=== PATIENT | female | born 2000 | race Caucasian/White ===

== ENCOUNTER 2018-01-09 20:31 | Emergency (ER) | payer BC, OTHER ==
[~2018-01-09] VITALS: Ht 165.1 cm; Wt 52.0 kg
[~2018-01-09 20:31] MED LIST: AMOX400C20 CHEW; PHEN12.5 PR
[2018-01-09 20:49] VITALS: BP 135/98; PULSE 107; RESP 18; TEMP 98.1; O2SAT 98
--- NOTE | 2018-01-09 21:55 | PD ---
HPI Chief Complaint: Shakiness Time Seen by Provider: 21:44 Travel History International Travel<30 days: No Contact w/Intl Traveler<30days: No History of Present Illness HPI 17yo F with no significant PMH presents to the ED with episodes of shakiness, gasping for air and sob since 7pm this evening. Said she will feel fine and no sob in between these episodes. Pt have been having nonbloody diarrhea for a few days. Denies any history of anxiety, fever, chest pain, n/v, abdominal pain , focal weakness or numbness. Denies any alcohol or drug use. PFSH Past Medical History Diminished Hearing: No Past Surgical History Tonsillectomy: Yes Social History Alcohol Use: No Tobacco Use: No Substance Use: No Allergies-Medications (Allergen,Severity, Reaction): Coded Allergies: Sulfa (Sulfonamide Antibiotics) (Verified Allergy, Intermediate, Localized Rash, 01/09/18) Reported Meds & Prescriptions Reported Meds & Active Scripts Active Amoxil (Amoxicillin) 400 Mg Chw 400 Mg CHEW Q8 5 Days Phenergan (Promethazine HCl) 12.5 Mg Sup 6.25 Mg KS TIDPRN NAUSEA/VOMITING Review of Systems Except as stated in HPI: all other systems reviewed are Neg Physical Exam Narrative GENERAL: 17yo F in mild distress. SKIN: Focused skin assessment warm/dry. HEAD: Atraumatic. Normocephalic. EYES: Pupils equal and round. No scleral icterus. No injection or drainage. ENT: No nasal bleeding or discharge. Mucous membranes pink and moist. NECK: Trachea midline. No JVD. CARDIOVASCULAR: Tachycardic in the 120s. No murmur appreciated. RESPIRATORY: Hyperventilating. Clear to auscultation. Breath sounds equal bilaterally. GASTROINTESTINAL: Abdomen soft, non-tender, nondistended. MUSCULOSKELETAL: No obvious deformities. No clubbing. No cyanosis. No edema. NEUROLOGICAL: Awake and alert. No obvious cranial nerve deficits. Motor grossly within normal limits. Normal speech. +Resting tremors in upper extremities. PSYCHIATRIC: Anxious appearing. Data Data Last Documented VS Vital Signs Date Time Temp Pulse Resp B/P (MAP) Pulse Ox O2 Delivery O2 Flow Rate FiO2 01/09/18 22:57 84 18 111/65 (80) 99 01/09/18 21:57 Room Air 4/16/18 20:49 98.1 Orders Orders Ed Urine Pregnancytest Poc (01/09/18 21:45) Electrocardiogram (01/09/18 ) Basic Metabolic Panel (Bmp) (01/09/18 21:51) Thyroid Stimulating Hormone (01/09/18 21:51) Lorazepam Inj (Ativan Inj) (01/09/18 22:00) Sodium Chlor 0.9% 1000 Ml Inj (Ns 1000 M (01/09/18 22:00) Urinalysis - C+S If Indicated (01/09/18 22:15) Labs Laboratory Tests Test 01/09/18 22:00 01/09/18 22:05 Urine Color YELLOW Urine Turbidity CLEAR Urine pH 6.0 Urine Specific [place] LESS/EQUAL 1.005 Urine Protein NEG mg/dL Urine Glucose (UA) NEG mg/dL Urine Ketones NEG mg/dL Urine Occult Blood TRACE Urine Nitrite NEG Urine Bilirubin NEG Urine Urobilinogen 0.2 MG/DL Urine Leukocyte Esterase NEG Urine WBC 0-2 /hpf Urine Squamous Epithelial Cells 0-5 /hpf Microscopic Urinalysis Comment CULT NOT INDICATED Blood Urea Nitrogen 10 MG/DL Creatinine 0.83 MG/DL Random Glucose 90 MG/DL Calcium Level 9.0 MG/DL Sodium Level 138 MEQ/L Potassium Level 3.4 MEQ/L Chloride Level 105 MEQ/L Carbon Dioxide Level 24.5 MEQ/L Anion Gap 9 MEQ/L Estimat Glomerular Filtration Rate 89 ML/MIN Thyroid Stimulating Hormone 3rd Gen 1.190 uIU/ML [facility] Medical Decision Making Medical Screen Exam Complete: Yes Emergency Medical Condition: Yes Interpretation(s) EKG: NSR 93bpm. Normal axis. QRS normal. No ST segment elevation or depression. Differential Diagnosis Anxiety vs. hyperthyroidism vs. dehydration vs. anorexia Narrative Course 17yo F here with what sounds like episodes of panic attack. Pt has these episodes where she is gasping for air and feels like she cant breath and feels shaky. Pt does not have any sob between the episodes. negative. UA negative. Pt given ativan and NS IVF. Pt initially tachycardic but HR is now 84bpm. Pt reevaluated at bedside and feels much better. Denies any SOB and wants to go home. O2 sat 99% on RA. Labs reviewed, TSH normal. BUN/ creatinine normal. Return precautions given. Diagnosis Primary Impression: Panic attack Patient Instructions: General Instructions Departure Forms: Tests/Procedures Additional Instructions: Please follow up with your primary care physician. Return to the ED if symptoms worsen. Med/Other Pt SpecificInfo: No Change to Meds Disposition: 01 DISCHARGE HOME Condition: Stable Keri Multani DO Jan 09, 2018 21:55
[2018-01-09 21:59] VITALS: BP 133/78; PULSE 125; RESP 20; O2SAT 99
[2018-01-09] MEDS ORDERED: SODIUM CHLOR 0.9% 1000 ML INJ 1,000 ML IV ONE (22:00)
[2018-01-09] MEDS ORDERED: LORazepam 2 MG/ML VIAL IV PUSH ONE (22:00)
[2018-01-09 22:34] LABS: BICARBONATE 24.5 MEQ/L (21.0-32.0)
[2018-01-09 22:38] LABS: CREATININE 0.83 MG/DL (0.50-1.00)
[2018-01-09 22:53] LABS: BILIRUBIN, URINE NEG (NEG); BLOOD, URINE TRACE (NEG); GLUCOSE,URINE NEG (NEG); KETONE, URINE NEG (NEG); NITRITE,URINE NEG (NEG); URINE COLOR YELLOW (YELLW/STRAW); URINE LEUKOCYTE ESTERASE NEG (NEG)
[2018-01-09 22:57] VITALS: BP 111/65; PULSE 84; RESP 18; O2SAT 99
[2018-01-09 22:58] LABS: SQUAMOUS EPITHELIAL CELL URINE 0-5 /hpf (0-5); WBC, URINE 0-2 /hpf (0-5)
[2018-01-09 23:15] VITALS: BP 114/68
--- NOTE | 2018-01-10 15:25 | EKG ---
Date Performed: 01/09/2018 Time Performed: 22:01:09 PTAGE: 17 years EKG: Sinus rhythm NORMAL ECG NO PREVIOUS TRACING DOCTOR: Missael Kapoor Interpretating Date/Time 01/10/2018 15:20:38
== END 2018-01-09 23:15 | disposition home or self-care (01) ==
LOC: PHED 20:31
DX: F41.0 Panic disorder [episodic paroxysmal anxiety] (principal); R00.0 Tachycardia, unspecified
CPT/HCPCS: 80048; 81001; 84443; 84703; 93005; 96361; 96374; 99284; J2060; J7030